=== PATIENT | female | born 1995 | race Caucasian/White ===

== ENCOUNTER 2022-11-17 17:59 | Emergency (ER) | payer MEDICAID ==
[~2022-11-17] VITALS: Ht 170.2 cm; Wt 52.3 kg
[2022-11-17] VITALS (7 sets, daily range): BP systolic 93–117; BP diastolic 65–75
[2022-11-17 19:48] LABS: BASO% 0.5 % (0-3); EOS% 1.3 % (0-8); HEMATOCRIT 38.6 % (37.0-47.0); HEMOGLOBIN 12.7 g/dl (12.0-16.0); IMMATURE GRANULOCYTES 0.1 % (0.0-5.0); LYMPH% 32.5 % (15-41); MEAN CELL VOLUME 93.9 fL CALC (80.0-100.0); MEAN CORPUSCULAR HGB 30.9 pG CALC (26.0-32.0); MEAN CORPUSCULAR HGB CONC 32.9 g/dL CAL (32.0-36.0); MONO% 8.5 % (2-13); NEUT# 5.27 thou/uL (2.00-7.15); NEUT% 57.1 % (42-76); RED BLOOD COUNT 4.11 mill/uL (4.20-5.60); RED CELL DISTRI WIDTH 12.6 % (11.5-15.5)
[2022-11-17 20:09] LABS: ALBUMIN 4.5 g/dL (3.2-5.0); ALKALINE PHOSPHATASE 68 u/l (38-126); ANION GAP 11 (6-22 (CALC)); BUN 12 mg/dL (7-17); BUN/CREATININE RATIO 19 (12-20 (CALC)); CARBON DIOXIDE 26 mmol/l (22-30); CHLORIDE 106 mmol/l (95-108); CREATININE 0.6 mg/dL (0.5-1.0); GFR FOR AFR.AMER. > 60 ML/MIN (>=60 (CALC)); GFR OTHER RACES > 60 ML/MIN (>=60 (CALC)); POTASSIUM 3.9 mmol/l (3.5-5.1); SGOT/AST 41 u/l (14-36); SODIUM 139 mmol/l (137-146); TOTAL PROTEIN 7.8 g/dL (6.3-8.2)
[2022-11-17 20:31] LABS: URINE BILIRUBIN - DIPSTICK NEGATIVE (NEGATIVE); URINE BLOOD DIPSTICK NEGATIVE (NEGATIVE); URINE COLOR YELLOW; URINE GLUCOSE - DIPSTICK NEGATIVE (NEGATIVE); URINE KETONE NEGATIVE (NEGATIVE); URINE LEUK ESTERASE NEGATIVE (NEGATIVE); URINE PROTEIN - DIPSTICK NEGATIVE (NEG-TRACE); URINE UROBILINOGEN - DIPSTICK 0.2 E.U./dL (0.2)
[2022-11-17 20:33] LABS: URINE NITRITE - DIPSTICK NEGATIVE (Negative)
== END 2022-11-17 21:18 | disposition home or self-care (01) ==
LOC: ED 17:59
PROVIDERS: Family Medicine
DX: R10.9 Unspecified abdominal pain (principal)

== ENCOUNTER 2023-12-09 12:56 | Emergency (ER) | payer OTHER ==
[~2023-12-09] VITALS: Ht 170.2 cm; Wt 58.9 kg
[2023-12-09 13:02] VITALS: BP 101/63
[2023-12-09 13:15] VITALS: BP 90/59
[2023-12-09 13:30] VITALS: BP 101/77
[2023-12-09 13:34] LABS: URINE BILIRUBIN - DIPSTICK Negative (NEGATIVE); URINE BLOOD DIPSTICK Moderate (NEGATIVE); URINE GLUCOSE - DIPSTICK Negative (NEGATIVE); URINE KETONE Negative (NEGATIVE); URINE NITRITE - DIPSTICK Negative (Negative); URINE PROTEIN - DIPSTICK Negative (NEG-TRACE); URINE UROBILINOGEN - DIPSTICK 0.2 E.U./dL (0.2)
[2023-12-09 13:36] LABS: URINE COLOR Yellow; URINE LEUK ESTERASE Small (NEGATIVE)
[2023-12-09 13:44] LABS: URINE SQUAMOUS EPITHELIAL CELL FEW EPI/hpf (0-FEW)
[2023-12-09 13:45] VITALS: BP 92/60
[2023-12-09 13:45] LABS: URINE BACTERIA FEW hpf
[2023-12-09] MEDS ORDERED: KEFLEX500 MG PO (13:46)
[2023-12-09] MEDS ORDERED: PHENAZOPYRIDIN100 M1 PO (13:47)
[2023-12-09 13:58] VITALS: BP 92/60
== END 2023-12-09 13:58 | disposition home or self-care (01) | DRG 690 ==
LOC: ED 12:56
PROVIDERS: Nurse Practitioner
DX: N39.0 Urinary tract infection, site not specified (principal); B95.7 Other staphylococcus as the cause of diseases classified elsewhere